=== PATIENT | female | born 1955 | race Caucasian/White ===

== ENCOUNTER 2022-07-08 13:14 | Outpatient (CLI) | payer MEDICARE | END 2022-07-08 13:15 | disposition home or self-care (01) | LOC: BURRAD 13:14 | PROVIDERS: ATTEND Family Medicine | DX: M47.22 Other spondylosis with radiculopathy, cervical region (principal) | CPT/HCPCS: 72050 ==

== ENCOUNTER 2022-09-06 10:18 | Emergency (ER) | payer MEDICARE ==
[2022-09-06 10:49] LABS: Clarity Turbid (Clear); pH, Urine 8.5 (5.0-9.0)
[2022-09-06 10:50] LABS: Leukocyte Unable to Interpret (Negative); Nitrite Unable to Interpret (Negative); Protein, Urine (Dipstick) Unable to Interpret mg/dL (Neg-Trace)
[2022-09-06 10:51] LABS: Bilirubin Unable to Interpret (Negative); Blood, Urine Unable to Interpret (Negative); Glucose, Urine (Dipstick) Unable to Interpret mg/dL (Negative); Ketone, Urine Unable to Interpret mg/dL (Negative); Urobilinogen UNABLE TO INTERPRET mg/dL (Less than 2)
[2022-09-06 10:52] LABS: Specific Gravity, Urine 1.014 (1.002-1.036)
[2022-09-06 11:06] LABS: Bacteria/HPF Rare-Few HPF (None Seen); RBC/HPF Greater than 50 HPF (0-3); Squamous Epithelial None Seen HPF (0-3)
== END 2022-09-06 11:50 | disposition home or self-care (01) ==
LOC: BURERS 10:18
DX: N39.0 Urinary tract infection, site not specified (principal)
CPT/HCPCS: 81003; 81015; 99284

== ENCOUNTER 2023-01-19 11:38 | Emergency (ER) | payer MEDICARE ==
[2023-01-19 11:58] LABS: Bilirubin Negative (Negative); Blood, Urine Large (Negative); Glucose, Urine (Dipstick) Negative (Negative); Ketone, Urine Trace mg/dL (Negative); Leukocyte Negative (Negative); Nitrite Negative (Negative); Protein, Urine (Dipstick) > or equal to 300 mg/dL (Neg-Trace); Urobilinogen 0.2 mg/dL (Less than 2)
[2023-01-19 11:59] LABS: Clarity Cloudy (Clear); Specific Gravity, Urine 1.032 (1.002-1.036)
[2023-01-19 12:00] LABS: Bacteria/HPF None Seen HPF (None Seen); CAUTI Indications for Culture Acute Hematuria; RBC/HPF Greater than 50 HPF (0-3); Squamous Epithelial 0-3 HPF (0-3)
[2023-01-19 12:01] LABS: Urine Culture Reflex No No
== END 2023-01-19 12:06 | disposition home or self-care (01) ==
LOC: BURERS 11:38
DX: N39.0 Urinary tract infection, site not specified (principal); I10 Essential (primary) hypertension; E03.9 Hypothyroidism, unspecified; Z79.899 Other long term (current) drug therapy
CPT/HCPCS: 81001; 87086; 99283

== ENCOUNTER 2023-12-15 08:45 | Outpatient (CLI) | payer MEDICARE | END 2023-12-15 08:46 | disposition home or self-care (01) | LOC: BURCT 08:45 | PROVIDERS: ATTEND Internal Medicine | DX: R91.1 Solitary pulmonary nodule (principal) | CPT/HCPCS: 71250 ==

== ENCOUNTER 2025-03-08 08:43 | Emergency (ER) | payer MEDICARE ==
[2025-03-08 08:56] LABS: Glucose, Urine (Dipstick) Negative (Negative); Leukocyte Trace (Negative); Protein, Urine (Dipstick) > or equal to 300 mg/dL (Neg-Trace); Specific Gravity, Urine 1.025 (1.005-1.030)
[2025-03-08 08:59] LABS: Bacteria/HPF Rare-Few HPF (None Seen); CAUTI Indications for Culture Dysuria,urgency,freq; RBC/HPF Greater than 50 HPF (0-3)
[2025-03-08 09:00] LABS: Urine Culture Reflex No No
== END 2025-03-08 09:09 | disposition home or self-care (01) ==
LOC: BURERS 08:43
DX: N39.0 Urinary tract infection, site not specified (principal); R31.9 Hematuria, unspecified; I10 Essential (primary) hypertension
CPT/HCPCS: 81001; 99283

== ENCOUNTER 2025-06-20 13:00 | Emergency (ER) | payer MEDICARE ==
[2025-06-20 13:21] LABS: Specific Gravity, Urine Greater/Equal 1.030 (1.005-1.030)
[2025-06-20 13:22] LABS: Glucose, Urine (Dipstick) Unable to Interpret mg/dL (Negative); Leukocyte Unable to Interpret (Negative); Protein, Urine (Dipstick) Unable to Interpret mg/dL (Neg-Trace)
[2025-06-20 13:23] LABS: Bacteria/HPF 1+ HPF (None Seen); CAUTI Indications for Culture Dysuria,urgency,freq; RBC/HPF Greater than 50 HPF (0-3)
[2025-06-20 13:25] LABS: Urine Culture Reflex Yes Yes
[2025-06-20] MEDS ORDERED: Sulfameth/Trimethoprim DS 800-160mg TAB ONE (13:50)
== END 2025-06-20 13:51 | disposition home or self-care (01) ==
LOC: BURERS 13:00
DX: N39.0 Urinary tract infection, site not specified (principal); I10 Essential (primary) hypertension
CPT/HCPCS: 81001; 87077; 87086; 99283

== ENCOUNTER 2025-07-07 13:01 | Emergency (ER) | payer MEDICARE ==
[2025-07-07 13:14] LABS: Glucose, Urine (Dipstick) Negative (Negative); Leukocyte Moderate (Negative); Protein, Urine (Dipstick) > or equal to 300 mg/dL (Neg-Trace); Specific Gravity, Urine 1.025 (1.005-1.030)
[2025-07-07 13:21] LABS: Bacteria/HPF 1+ HPF (None Seen); CAUTI Indications for Culture Dysuria,urgency,freq; RBC/HPF 21-50 HPF (0-3); WBC/HPF Greater Than 50 HPF (0-3)
[2025-07-07 13:23] LABS: Urine Culture Reflex Yes Yes
[2025-07-07] MEDS ORDERED: Sulfameth/Trimethoprim DS 800-160mg TAB ONE (13:42)
== END 2025-07-07 14:00 | disposition home or self-care (01) ==
LOC: BURERS 13:01
DX: N39.0 Urinary tract infection, site not specified (principal); I10 Essential (primary) hypertension
CPT/HCPCS: 81001; 87086; 99283

== ENCOUNTER 2025-07-18 12:05 | Emergency (ER) | payer MEDICARE ==
[2025-07-18 12:29] LABS: Specific Gravity, Urine Greater/Equal 1.030 (1.005-1.030)
[2025-07-18 12:31] LABS: Glucose, Urine (Dipstick) Unable to Interpret mg/dL (Negative); Leukocyte Unable to Interpret (Negative); Protein, Urine (Dipstick) Unable to Interpret mg/dL (Neg-Trace)
[2025-07-18 12:32] LABS: Bacteria/HPF Rare-Few HPF (None Seen); CAUTI Indications for Culture Dysuria,urgency,freq; RBC/HPF Greater than 50 HPF (0-3)
[2025-07-18 12:34] LABS: Urine Culture Reflex No No
== END 2025-07-18 12:53 | disposition home or self-care (01) ==
LOC: BURERS 12:05
DX: N30.01 Acute cystitis with hematuria (principal); R35.0 Frequency of micturition; E03.9 Hypothyroidism, unspecified; I10 Essential (primary) hypertension; Z79.890 Hormone replacement therapy; Z79.899 Other long term (current) drug therapy
CPT/HCPCS: 81001; 99283